=== PATIENT | male | born 2000 | race African-American/Black ===

== ENCOUNTER 2020-12-18 23:51 | Emergency (ER) | payer OTHER ==
[~2020-12-18] VITALS: Ht 188 cm; Wt 108.0 kg
[2020-12-19 00:06] VITALS: BP 121/80
[2020-12-19 01:00] LABS: CLARITY URINE CLEAR (CLEAR); COLOR URINE YELLOW (YELLOW); KETONES URINE TRACE (NEGATIVE); LEUKOCYTE ESTERASE URINE 1+ (NEGATIVE); NITRITE URINE NEGATIVE (NEGATIVE); OCCULT BLOOD URINE NEGATIVE (NEGATIVE); PROTEIN URINE NEGATIVE (NEGATIVE); SPECIFIC GRAVITY URINE 1.016 (1.005-1.030); UROBILINOGEN URINE 0.2 E.U./dL (0.2-1.0)
[2020-12-21 04:12] LABS: NEISSERIA GONORRHOEAE NAA Negative (Negative)
== END 2020-12-19 02:20 | disposition home or self-care (01) ==
LOC: ER 23:51
DX: N34.2 Other urethritis (principal); Z98.890 Other specified postprocedural states
CPT/HCPCS: 81003; 87491; 87591; 99283